=== PATIENT | female | born 2000 | race African-American/Black ===

== ENCOUNTER 2024-03-24 16:40 | Emergency (ER) | payer OTHER ==
[2024-03-24 17:20] VITALS: BP 137/94; PULSE 68; RESP 15; TEMP 99.7; BMI 21.6
== END 2024-03-24 17:37 | disposition home or self-care (01) ==
LOC: FER 16:40
DX: Z04.1 Encounter for examination and observation following transport accident (principal); V49.50XA Passenger injured in collision with unspecified motor vehicles in traffic accident, initial encounter
CPT/HCPCS: 99282-25